=== PATIENT | male | born 2000 | race Two or more races ===

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

== ENCOUNTER 2022-03-11 10:44 | Outpatient (CLI) | payer OTHER | END 2022-03-11 14:31 | disposition home or self-care (01) | LOC: LAB 10:44 | DX: Z20.828 Contact with and (suspected) exposure to other viral communicable diseases (principal); Z20.818 Contact with and (suspected) exposure to other bacterial communicable diseases ==